=== PATIENT | female | born 1935 | race Caucasian/White ===

== ENCOUNTER 2017-08-27 14:51 | Emergency (ER) | payer OTHER ==
[~2017-08-27] VITALS: Ht 149.9 cm; Wt 38.6 kg
[~2017-08-27 14:51] MED LIST: CARDURA1 MG; COUMADIN2.5 MG; ENALAPRIL MALEA20 MG; FOSAMAX70 MG; HYDRALAZINE HCL50 MG; INTESTINEX1 CAP PO; LASIX40 MG; LOSARTAN-HCTZ1 EACH; MICARDIS20 MG; ZANTAC150 M3 PO; ZOCOR40 MG
== END 2017-08-27 22:18 | disposition home or self-care (01) ==
LOC: ER 14:51
DX: R55 Syncope and collapse (principal)

== ENCOUNTER 2017-10-27 06:37 | Outpatient (CLI) | payer OTHER | END 2017-10-27 08:08 | disposition home or self-care (01) | LOC: NUCLEAR 06:37 | DX: R07.89 Other chest pain (principal); R94.31 Abnormal electrocardiogram [ECG] [EKG] | CPT/HCPCS: 78452; 93017; A9500; J0153 ==

== ENCOUNTER 2018-08-01 07:21 | Outpatient (CLI) | payer OTHER | END 2018-08-01 07:28 | disposition home or self-care (01) | LOC: RAD 07:21 | DX: J45.998 Other asthma (principal) ==

== ENCOUNTER 2020-01-05 05:09 | Emergency (ER) | payer OTHER ==
[~2020-01-05] VITALS: Ht 149.9 cm; Wt 38.6 kg
[2020-01-05] MEDS ORDERED: DILTIAZEM ER120 M2 (05:24)
== END 2020-01-05 11:17 | disposition home or self-care (01) ==
LOC: ER 05:09
DX: K52.9 Noninfective gastroenteritis and colitis, unspecified (principal); R11.2 Nausea with vomiting, unspecified

== ENCOUNTER 2020-05-15 11:27 | Emergency (ER) | payer OTHER ==
[~2020-05-15] VITALS: Ht 152.4 cm; Wt 39.0 kg
[~2020-05-15 11:27] MED LIST changes: +DILTIAZEM ER120 M2
== END 2020-05-15 15:35 | disposition home or self-care (01) ==
LOC: ER 11:27
DX: G40.89 Other seizures (principal); I16.0 Hypertensive urgency; I10 Essential (primary) hypertension; Z03.818 Encounter for observation for suspected exposure to other biological agents ruled out

== ENCOUNTER 2020-05-31 18:43 | Emergency (ER) | payer OTHER ==
[~2020-05-31] VITALS: Ht 165.1 cm; Wt 38.6 kg
== END 2020-05-31 20:59 | disposition home or self-care (01) ==
LOC: ER 18:43
DX: S00.81XA Abrasion of other part of head, initial encounter (principal); W18.39XA Other fall on same level, initial encounter; Y93.89 Activity, other specified; Y92.096 Garden or yard of other non-institutional residence as the place of occurrence of the external cause; Y99.8 Other external cause status

== ENCOUNTER 2020-06-23 11:28 | Emergency (ER) | payer OTHER ==
[~2020-06-23] VITALS: Ht 144.8 cm; Wt 45.4 kg
[2020-06-23] MEDS ORDERED: APETIGEN L790 MG/15 (11:38)
[2020-06-23] MEDS ORDERED: KEPPRA500 MG (11:38)
== END 2020-06-23 18:28 | disposition home or self-care (01) ==
LOC: ER 11:28
DX: S62.617A Displaced fracture of proximal phalanx of left little finger, initial encounter for closed fracture (principal); D68.8 Other specified coagulation defects; I48.91 Unspecified atrial fibrillation; S60.05 Contusion of little finger without damage to nail; S00.83XS Contusion of other part of head, sequela; W22.8XXS Striking against or struck by other objects, sequela; Z20.828 Contact with and (suspected) exposure to other viral communicable diseases

== ENCOUNTER 2020-07-16 11:16 | Outpatient (CLI) | payer OTHER ==
[~2020-07-16 11:16] MED LIST changes: +APETIGEN L790 MG/15; +KEPPRA500 MG
== END 2020-07-16 11:37 | disposition home or self-care (01) ==
LOC: RAD 11:16
PROVIDERS: ATTEND Orthopaedic Surgery
DX: M85.842 Other specified disorders of bone density and structure, left hand (principal); S60.222D Contusion of left hand, subsequent encounter

== ENCOUNTER 2020-07-29 08:49 | Outpatient (CLI) | payer OTHER ==
[2020-08-30] MEDS ORDERED: JANTOVEN1 MG (15:08)
[2020-08-30] MEDS ORDERED: DILTIAZEM 24HR180 MG PO (15:09)
[2020-08-31] MEDS ORDERED: LEVOTHYROXINE25 MC1 (15:30)
== END 2020-07-29 09:00 | disposition home or self-care (01) ==
LOC: NUCLEAR 08:49
PROVIDERS: ATTEND Orthopaedic Surgery
DX: M81.0 Age-related osteoporosis without current pathological fracture (principal)

== ENCOUNTER 2020-08-27 13:58 | Outpatient (CLI) | payer OTHER ==
[2020-08-30] MEDS ORDERED: JANTOVEN1 MG (15:08)
[2020-08-30] MEDS ORDERED: DILTIAZEM 24HR180 MG PO (15:09)
[2020-08-31] MEDS ORDERED: LEVOTHYROXINE25 MC1 (15:30)
== END 2020-08-27 14:01 | disposition home or self-care (01) ==
LOC: RAD 13:58
PROVIDERS: ATTEND Family Medicine
DX: R06.02 Shortness of breath (principal)